=== PATIENT | male | born 1975 | race Hispanic/Latino ===

== ENCOUNTER 2018-02-15 07:32 | Emergency (ER) | payer BC ==
[2018-02-15] MEDS ORDERED: MIDAZOLAM HCL 2 MG/2 ML INJ ONE ×2 (08:19→08:28)
[2018-02-15] MEDS ORDERED: NA CHLORIDE 0.9% 1,000 ML ONE (08:19)
[2018-02-15] MEDS ORDERED: FENTANYL CITR 100 MCG/2 ML ONE (08:19)
[2018-02-15 08:20] LABS: Absolute Lymphocytes (CBC) 1.2 K/uL (0.7-4.9); Absolute Monocytes 0.4 K/uL (0.1-1.3); Absolute Neutrophil 3.4 K/uL (1.8-8.0); Basophils % 0.7 % (0-1.3); Eosinophils % 0.8 % (0-4.4); Hematocrit 42.6 % (39.6-49.0); Lymphocytes % 23.9 % (15.3-44.8); MPV 8.4 fL (7.6-11.3); Monocytes % 8.3 % (3.3-12.3); RBC Red Blood Cell Count 4.82 M/uL (4.33-5.43)
[2018-02-15 08:21] LABS: Protime INR 1.03
[2018-02-15] MEDS ORDERED: ETOMIDATE 20 MG/10 ML VIAL IV ONE (08:33)
[2018-02-15 08:45] LABS: ALT/SGPT 35 U/L (12-78); AST/SGOT 25 U/L (15-37); Albumin 3.7 g/dL (3.4-5.0); Alkaline Phosphatase 107 U/L (45-117); BUN Blood Urea Nitrogen 9 mg/dL (7-18); Bicarbonate 26 mmol/L (21-32); Bilirubin Direct 0.1 mg/dL (0-0.2); Bilirubin Total 0.6 mg/dL (0.2-1.0); Glucose Level 124 mg/dL (74-106); Magnesium 1.9 mg/dL (1.8-2.4); NT PRO-BNP 106 pg/mL (<125); Potassium 4.1 mmol/L (3.5-5.1); Protein, Total 7.4 g/dL (6.4-8.2); Sodium Level 141 mmol/L (136-145); Troponin (Emerg Dept Use Only) < 0.02 ng/mL (0.0-0.045)
--- NOTE | 2018-02-15 09:57 | RAD REPORT ---
EXAM DESCRIPTION: RAD - Chest Single View - 02/15/2018 9:42 am CLINICAL HISTORY: Chest pain, tachycardia, palpitations COMPARISON: None. TECHNIQUE: AP portable chest image was obtained 0916 hours . FINDINGS: Lungs are clear. Heart and vasculature are normal. No measurable pleural effusion and no p neumothorax. No acute bony abnormality seen. No acute aortic finding. Resuscitation paddles overlie t he left-side of the chest. IMPRESSION: No acute cardiopulmonary process.
--- NOTE | 2018-02-15 10:19 | EDPHYS ---
Physician Documentation [facility] Name: Inderjit Hassan Jr Age: 42 yrs Sex: Male : 1975 Arrival Date: 02/15/2018 Time: 07:36 Bed 4 Private MD: ED Physician Angus Bradshaw HPI: 02/15 08:36 This 42 yrs old Male presents to ER via Ambulatory with complaints of jr8 Palpitations, High Blood Pressure. 08:36 The patient presents with a history of irregular heart beat, heart racing. Context: The jr8 symptoms occur at rest. Onset: The symptoms/episode began/occurred acutely, this morning. Duration: The patient or guardian reports a single episode, that is still ongoing. Modifying factors: The symptoms are aggravated by nothing. The symptoms are alleviated by nothing. Associated signs and symptoms: The patient has no apparent associated signs or symptoms. Severity of symptoms: At their worst the symptoms were moderate in the emergency department the symptoms are unchanged. The patient has experienced a previous episode, approximately 11 years ago. The patient has been recently seen by a physician:. Patient with history of atrial fib about 11 years ago. Had cardioversion at that time. Had been fine since then. A few weeks ago felt anxious and that he started to have palpitation feeling again. Had stress test, echo, and ekg by his service inspector with no acute findings. This morning it started again and was brought to hospital by co-worker . Historical: - Allergies: 07:47 No Known Allergies; hj - Home Meds: 07:47 lisinopril 20 mg Oral tab 1 tab once daily [Active]; pravastatin oral oral [Active]; - PMHx: 07:47 Hyperlipidemia; Hypertension; - PSHx: 07:47 None; - Immunization history:: Adult Immunizations not up to date. - Social history:: Smoking status: Patient uses tobacco products, Patient/guardian denies using alcohol. - Ebola Screening: : Patient negative for fever greater than or equal to 101.5 degrees Fahrenheit, and additional compatible Ebola Virus Disease symptoms Patient denies exposure to infectious person Patient denies travel to an Ebola-affected area in the 21 days before illness onset. ROS: 08:36 Eyes: Negative for injury, pain, redness, and discharge, ENT: Negative for injury, jr8 pain, and discharge, Neck: Negative for injury, pain, and swelling, Respiratory: Negative for shortness of breath, cough, wheezing, and pleuritic chest pain, Abdomen/GI: Negative for abdominal pain, nausea, vomiting, diarrhea, and constipation, Back: Negative for injury and pain, MS/Extremity: Negative for injury and deformity, Skin: Negative for injury, rash, and discoloration, Neuro: Negative for headache, weakness, numbness, tingling, and seizure. 08:36 Cardiovascular: Positive for palpitations, Negative for chest pain, edema, orthopnea. Exam: 08:36 Eyes: Pupils equal round and reactive to light, extra-ocular motions intact. Lids and jr8 lashes normal. Conjunctiva and sclera are non-icteric and not injected. Cornea within normal limits. Periorbital areas with no swelling, redness, or edema. ENT: Nares patent. No nasal discharge, no septal abnormalities noted. Tympanic membranes are normal and external auditory canals are clear. Oropharynx with no redness, swelling, or masses, exudates, or evidence of obstruction, uvula midline. Mucous membranes moist. Neck: Trachea midline, no thyromegaly or masses palpated, and no cervical lymphadenopathy. Supple, full range of motion without nuchal rigidity, or vertebral point tenderness. No Meningismus. Respiratory: Lungs have equal breath sounds bilaterally, clear to auscultation and percussion. No rales, rhonchi or wheezes noted. No increased work of breathing, no retractions or nasal flaring. Abdomen/GI: Soft, non-tender, with normal bowel sounds. No distension or tympany. No guarding or rebound. No evidence of tenderness throughout. Back: No spinal tenderness. No costovertebral tenderness. Full range of motion. Skin: Warm, dry with normal turgor. Normal color with no rashes, no lesions, and no evidence of cellulitis. MS/ Extremity: Pulses equal, no cyanosis. Neurovascular intact. Full, normal range of motion. Neuro: Awake and alert, GCS 15, oriented to person, place, time, and situation. Cranial nerves II-XII grossly intact. Motor strength 5/5 in all extremities. Sensory grossly intact. Cerebellar exam normal. Normal gait. 08:36 Cardiovascular: Rate: tachycardic, Rhythm: irregularly irregular, Pulses: Pulses are 1+ in right radial artery and left radial artery. Heart sounds: normal, normal S1and S2, no S3 or S4, no murmur, no rub, no gallop, Edema: is not appreciated, JVD: is not appreciated. Vital Signs: 07:45 BP 146 / 84; Pulse 130; Resp 18; Temp 98.1(O); Pulse Ox 99% on R/A; Weight 118.84 kg; hj Height 6 ft. 1 in. (185.42 cm); Pain 0/10; 08:00 BP 104 / 81; Pulse 144; Resp 18; Pulse Ox 98% on 2 lpm NC; ph 08:15 BP 150 / 107; Pulse 157; Resp 16; Pulse Ox 98% on 4 lpm NC; ph 08:33 BP 160 / 93; Pulse 96; Resp 18; Pulse Ox 98% on 4 lpm NC; ph 09:00 BP 127 / 87; Pulse 77; Resp 18; Pulse Ox 99% on 4 lpm NC; ph 09:20 BP 134 / 85; Pulse 79; Resp 16; Pulse Ox 99% on 4 lpm NC; ph 09:48 BP 127 / 80; Pulse 72; Resp 18; Pulse Ox 100% on 4 lpm NC; ph 10:15 BP 123 / 83; Pulse 74; Resp 18; Temp 97.8; Pulse Ox 99% on R/A; ph 07:45 Body Mass Index 34.57 (118.84 kg, 185.42 cm) Procedures: 08:33 Cardioversion: (synchronized) for treatment of A fib, with 150 joules X 1. Post jr8 procedure rhythm is unchanged, the patient tolerated the procedure well. Cardioversion: (synchronized) for treatment of A fib, with 200 joules X 1. Post procedure rhythm is sinus rhythm, the patient tolerated the procedure well. Moderate sedation: Pre-procedure assessment: the patient has been NPO 12 hour(s) prior to arrival, ASA physical classification: II - mild/mod systemic disease that does not interfere with daily routines, Airway assessment: able to hyperextend neck, able to maintain airway, can open mouth without difficulty, Mallampati classification of tongue size: II - faucial pillars and soft palate can be visualized, but uvula is masked by the base of the tongue, Monitoring during procedure: nuclear monitoring technician, continuous pulse oximetry, nurse at bedside at all times, Medications employed: Etomidate, 10 mg(s), Fentanyl, 75 mcg(s), Versed, 4 mg(s), Post-procedure assessment: the patient is deeply sedated, Alvarez sedation score: 5 - sluggish response to a light glabellar tap, Respiratory status: even and unlabored, a reversal agent was not used. MDM: 07:42 Patient medically screened. jr8 10:13 Data reviewed: vital signs, nurses notes, lab test result(s), EKG, radiologic studies, jr8 plain films, and as a result, I will discharge patient. Data interpreted: Pulse oximetry: on room air is 100 %. Interpretation: normal. Counseling: I had a detailed discussion with the patient and/or guardian regarding: the historical points, exam findings, and any diagnostic results supporting the discharge/admit diagnosis, lab results, radiology results, the need for outpatient follow up, a service inspector, to return to the emergency department if symptoms worsen or persist or if there are any questions or concerns that arise at home. ED course: Patient since cardioversion has been back to baseline. No CP, shortness of breath or any other symptom. Labs, ECG post cardioversion, and imaging all unremarkable. Will refer to local service inspector since his is in [place]. Will come back here if it starts again. Will put him on low dose of metoprolol since this has been more frequently occurring. S/S given to him if BP becomes too low and knows to check BP daily. Knows how to adjust his medicine as well which will be written down for him as well . 02/15 08:01 Order name: Basic Metabolic Panel 02/15 08:01 Order name: CBC with Diff 02/15 08:01 Order name: LFT's; Complete Time: 09:02/15 08:01 Order name: Magnesium; Complete Time: :02/15 08:01 Order name: NT PRO-BNP; Complete Time: :02/15 08:01 Order name: PT-INR; Complete Time: :02/15 08:01 Order name: Troponin (emerg Dept Use Only); Complete Time: 09:02/15 08:01 Order name: XRAY Chest (1 view); Complete Time: 10:02 02/15 08:01 Order name: TSH; Complete Time: 09:06 8 02/15 08:01 Order name: T4 Free; Complete Time: 09:06 02/15 08:02 Order name: Basic Metabolic Panel; Complete Time: 09:06 EDMS 02/15 08:02 Order name: CBC with Automated Diff; Complete Time: 09:06 EDMS 02/15 07:49 Order name: EKG; Complete Time: 07:50 hj 02/15 08:01 Order name: Cardiac monitoring; Complete Time: 08:45 02/15 08:01 Order name: EKG - Nurse/Tech; Complete Time: 08:45 02/15 08:01 Order name: IV Saline Lock; Complete Time: 08:46 02/15 08:01 Order name: Labs collected and sent; Complete Time: 08:46 02/15 08:01 Order name: O2 Per Protocol; Complete Time: 08:46 02/15 08:01 Order name: O2 Sat Monitoring; Complete Time: 08:46 02/15 10:17 Order name: EKG Electrocardiogram EDMS Administered Medications: 08:15 Drug: fentaNYL (PF) 75 mcg Route: IVP; Site: right antecubital; ph 08:30 Follow up: Response: No adverse reaction ph 08:15 Drug: NS 0.9% 500 ml Route: IV; Rate: bolus; Site: right antecubital; ph 08:45 Follow up: Response: No adverse reaction; IV Status: Completed infusion; IV Intake: ph 500ml 08:17 Drug: Versed 2 mg Route: IVP; Site: right antecubital; ph 10:36 Follow up: Response: No adverse reaction ph 08:19 Drug: Versed 2 mg Route: IVP; Site: right antecubital; ph 10:35 Follow up: Response: No adverse reaction ph 08:26 Drug: Etomidate 10 mg Route: IVP; Site: right antecubital; ph 10:36 Follow up: Response: No adverse reaction ph 08:45 Drug: NS 0.9% 1000 ml Route: IV; Rate: 125 ml/hr; Site: right antecubital; ph 10:35 Follow up: Response: No adverse reaction; IV Status: Completed infusion ph 10:35 Drug: Metoprolol 25 mg Route: PO; ph 10:37 Follow up: Response: Medication administered at discharge. ph Disposition: 11:49 Co-signature as Attending Physician, Angus Bradshaw MD. rn Disposition: 02/15/18 10:19 Discharged to Home. Impression: Atrial fibrillation and flutter - with RVR. - Condition is Stable. - Discharge Instructions: Atrial Fibrillation. - Prescriptions for Metoprolol Tartrate 25 mg Oral Tablet - take 1 tablet by ORAL route once daily with a meal; 30 tablet. - Work release form, Medication Reconciliation Form, Thank You Letter, Antibiotic Education, Prescription Opioid Use form. - Follow up: Dl Sanders MD; When: 2 - 3 days; Reason: Recheck today's complaints, Continuance of care, Re-evaluation by your physician. - Problem is new. - Symptoms are resolved. - Notes: Continue Lisinopril 20mg once daily along with Metoprolol 25 mg once daily If blood pressure is low cut Lisinopril down to 10 mg once a day and continue Metoprolol 25 mg Critical care time excluding procedures: 10:23 Critical care time: Bedside Care: 20 minutes, Family Intervention: 10 minutes. Total jr8 time: 30 minutes Signatures: Dispatcher [employer] [facility] Angus Bradshaw MD MD rn Nicolasa, JASMYNE Foss PA jr8 Naomy Varela RN RN ph Kevin Park RN RN Corrections: (The following items were deleted from the chart) 10:13 10:04 Hip Right 2 View+RAD.RAD.BRZ ordered. [facility] 10:39 10:19 02/15/2018 10:19 Discharged to Home. Impression: Atrial fibrillation and flutter ph - with RVR. Condition is Stable. Forms are Medication Reconciliation Form, Thank You Letter, Antibiotic Education, Prescription Opioid Use. Follow up: Dl Sanders; When: 2 - 3 days; Reason: Recheck today's complaints, Continuance of care, Re-evaluation by your physician. Problem is new. Symptoms are resolved. jr8
--- NOTE | 2018-02-15 10:19 | ER ---
Nurse's Notes [facility] Name: Inderjit Hassan Jr Age: 42 yrs Sex: Male : 1975 Arrival Date: 02/15/2018 Time: 07:36 Bed 4 Private MD: Diagnosis: Atrial fibrillation and flutter-with RVR Presentation: 02/15 07:44 Presenting complaint: Patient states: i woke up today with my heart raising and i have hj palpitations issues and my BP is high; recently visited a cardiology; denies chest pain;. Transition of care: patient was not received from another setting of care. Onset of symptoms was February 15, 2018. Risk Assessment: Do you want to hurt yourself or someone else? Patient reports no desire to harm self or others. Initial Sepsis Screen: Does the patient meet any 2 criteria? No. Patient's initial sepsis screen is negative. Does the patient have a suspected source of infection? No. Patient's initial sepsis screen is negative. Care prior to arrival: None. 07:44 Method Of Arrival: Ambulatory 07:44 Acuity: ADRIAN 3 Triage Assessment: 07:47 General: Appears in no apparent distress. uncomfortable, Behavior is calm, cooperative, hj appropriate for age. Pain: Denies pain. Historical: - Allergies: 07:47 No Known Allergies; - Home Meds: 07:47 lisinopril 20 mg Oral tab 1 tab once daily [Active]; pravastatin oral oral [Active]; - PMHx: 07:47 Hyperlipidemia; Hypertension; - PSHx: 07:47 None; - Immunization history:: Adult Immunizations not up to date. - Social history:: Smoking status: Patient uses tobacco products, Patient/guardian denies using alcohol. - Ebola Screening: : Patient negative for fever greater than or equal to 101.5 degrees Fahrenheit, and additional compatible Ebola Virus Disease symptoms Patient denies exposure to infectious person Patient denies travel to an Ebola-affected area in the 21 days before illness onset. Screenin:47 Abuse screen: Denies threats or abuse. Denies injuries from another. Nutritional hj screening: No deficits noted. Tuberculosis screening: No symptoms or risk factors identified. Fall Risk None identified. Assessment: 08:00 Reassessment: EKG done, showed Afib with RVR; new onset, provided ordered to transfer hj pt to trauma bay; report given to BILL RN;. 08:10 General: Appears in no apparent distress. comfortable, well groomed, Behavior is calm, ph cooperative, appropriate for age. Pain: Denies pain. Cardiovascular: Reports fatigue, lightheadedness, palpitations, shortness of breath, Denies chest pain, diaphoresis, nausea, vomiting, Capillary refill < 3 seconds Patient's skin is warm and dry. Rhythm is atrial fibrillation with rapid ventricular response. Respiratory: Airway is patent Respiratory effort is even, unlabored, Respiratory pattern is regular, symmetrical. GI: No signs and/or symptoms were reported involving the gastrointestinal system. Derm: Skin is intact, is healthy with good turgor, Skin is pink, warm \T\ dry. Musculoskeletal: Circulation, motion, and sensation intact. Range of motion: intact in all extremities. 08:15 Reassessment: Patient appears in no apparent distress at this time. JASMYNE Karimi at bedside, preparing pt for cardioversion, consent form signed by pt. 08:25 Reassessment: Patient appears in no apparent distress at this time. Patient and/or ph family updated on plan of care and expected duration. Pain level reassessed. Cardioversion x 2, cardiac rhythm is now 90 bpm SR, pt awake but drowsy, denies pain or SOB at this time, VSS, awaiting lab results. 09:52 Reassessment: Patient appears in no apparent distress at this time. Patient and/or ph family updated on plan of care and expected duration. Pain level reassessed. Patient is alert, oriented x 3, equal unlabored respirations, skin warm/dry/pink. Pt resting quietly, denies pain, VSS, cardiac rhythm remains NSR at 75 bpm. 10:09 Reassessment: Patient appears in no apparent distress at this time. Patient and/or ch family updated on plan of care and expected duration. Pain level reassessed. Patient is alert, oriented x 3, equal unlabored respirations, skin warm/dry/pink. PIPO AT BEDSIDE DISCUSSING RESULTS, DX, MEDICATIONS Patient denies pain at this time. Patient states feeling better. Patient states symptoms have improved. Vital Signs: 07:45 BP 146 / 84; Pulse 130; Resp 18; Temp 98.1(O); Pulse Ox 99% on R/A; Weight 118.84 kg; hj Height 6 ft. 1 in. (185.42 cm); Pain 0/10; 08:00 BP 104 / 81; Pulse 144; Resp 18; Pulse Ox 98% on 2 lpm NC; ph 08:15 BP 150 / 107; Pulse 157; Resp 16; Pulse Ox 98% on 4 lpm NC; ph 08:33 BP 160 / 93; Pulse 96; Resp 18; Pulse Ox 98% on 4 lpm NC; ph 09:00 BP 127 / 87; Pulse 77; Resp 18; Pulse Ox 99% on 4 lpm NC; ph 09:20 BP 134 / 85; Pulse 79; Resp 16; Pulse Ox 99% on 4 lpm NC; ph 09:48 BP 127 / 80; Pulse 72; Resp 18; Pulse Ox 100% on 4 lpm NC; ph 10:15 BP 123 / 83; Pulse 74; Resp 18; Temp 97.8; Pulse Ox 99% on R/A; ph 07:45 Body Mass Index 34.57 (118.84 kg, 185.42 cm) Vitals: 08:00 Cardiac Rhythm Assessment Atrial fibrillation W/rapid ventricular response. ph 09:48 Cardiac Rhythm Assessment Sinus rhythm. ph 10:15 Cardiac Rhythm Assessment Sinus rhythm. ph ED Course: 07:36 Patient arrived in ED. rg4 07:42 Pipo Baldwin PA is PHCP. jr8 07:42 Angus Bradshaw MD is Attending Physician. jr8 07:44 Kevin Park RN is Primary Nurse. hj 07:45 Triage completed. hj 07:47 Arm band placed on right wrist. hj 07:48 Patient has correct armband on for positive identification. Placed in gown. Bed in low hj position. Call light in reach. Side rails up X 1. 08:09 Report given to ZULMA KHAN. hj 08:10 Consent signed by pt for cardioversion. ph 08:10 Inserted saline lock: 18 gauge in right antecubital area, using aseptic technique. ph 08:12 Inserted saline lock: 20 gauge in left antecubital area, using aseptic technique. ph 08:20 Oxygen administration via nasal cannula \T\ 4L/min. ph 08:21 Assist provider with cardioversion (synchronized) with pads, for treatment of A fib ph with 150 joules X 1. Set up for procedure. Performed by Pipo MEDLEY Monitored with court monitor, pulse ox, Post procedure rhythm is unchanged. Patient tolerated well. 08:25 Assist provider with cardioversion (synchronized) with pads, for treatment of A fib ph with 200 joules X 1. Set up for procedure. Performed by Angus Bradshaw MD Monitored with court monitor, pulse ox, Post procedure rhythm is sinus rhythm. Patient tolerated well. 08:31 EKG done, by special procedures technologist. reviewed by Pipo MEDLEY Repeat EKG; post cardioversion. at1 08:33 Naomy Varela RN is Primary Nurse. ph 09:41 X-ray completed. Portable x-ray completed in exam room. Patient tolerated procedure jb2 well. 09:42 XRAY Chest (1 view) In Process Unspecified. EDMS 10:18 Dl Sanders MD is Referral Physician. jr8 10:38 IV discontinued, intact, bleeding controlled, No redness/swelling at site. Pressure ph dressing applied. Administered Medications: 08:15 Drug: fentaNYL (PF) 75 mcg Route: IVP; Site: right antecubital; ph 08:30 Follow up: Response: No adverse reaction ph 08:15 Drug: NS 0.9% 500 ml Route: IV; Rate: bolus; Site: right antecubital; ph 08:45 Follow up: Response: No adverse reaction; IV Status: Completed infusion; IV Intake: ph 500ml 08:17 Drug: Versed 2 mg Route: IVP; Site: right antecubital; ph 10:36 Follow up: Response: No adverse reaction ph 08:19 Drug: Versed 2 mg Route: IVP; Site: right antecubital; ph 10:35 Follow up: Response: No adverse reaction ph 08:26 Drug: Etomidate 10 mg Route: IVP; Site: right antecubital; ph 10:36 Follow up: Response: No adverse reaction ph 08:45 Drug: NS 0.9% 1000 ml Route: IV; Rate: 125 ml/hr; Site: right antecubital; ph 10:35 Follow up: Response: No adverse reaction; IV Status: Completed infusion ph 10:35 Drug: Metoprolol 25 mg Route: PO; ph 10:37 Follow up: Response: Medication administered at discharge. ph Intake: 08:45 IV: 500ml; Total: 500ml. ph Outcome: 10:19 Discharge ordered by . jr8 10:38 Discharged to home ambulatory. ph 10:38 Condition: improved 10:38 Discharge instructions given to patient, Instructed on discharge instructions, follow up and referral plans. medication usage, Demonstrated understanding of instructions, follow-up care, medications, Prescriptions given X 1. 10:39 Patient left the ED. ph Signatures: Dispatcher [employer] EDMS Lucia Galan, RN RN Tuan Higgins jb2 Pipo Baldwin PA PA jr8 Jane Amaya, board operator EKG Tat1 Naomy Varela RN RN Kevin Park RN RN Silvina Burnham rg4
[2018-02-15] MEDS ORDERED: METOPROLOL TAR 25 MG TAB ONE (10:41)
--- NOTE | 2018-02-15 13:26 | EKG ---
Test Date: 2018-02-15 Test Time: 08:26:06 Rehabilitation Construction Specialist: MELQUIADES MEASUREMENT RESULTS: Intervals: Rate: 89 CO: 156 QRSD: 106 QT: 364 QTc: 442 Korbel: P: 26 CO: 156 QRS: 58 T: 33 INTERPRETIVE STATEMENTS: Normal sinus rhythm Normal ECG Compared to ECG 02/15/2018 07:53:23 Atrial fibrillation no longer present Electronically Signed On 02-15-18 13:24:51 CAR DISTRIBUTOR by Keagan Andres
--- NOTE | 2018-02-15 13:26 | EKG ---
Test Date: 2018-02-15 Test Time: 07:53:23 Nut Grinder: MELQUIADES MEASUREMENT RESULTS: Intervals: Rate: 144 DC: QRSD: 90 QT: 266 QTc: 411 Victor: P: DC: QRS: 56 T: 34 INTERPRETIVE STATEMENTS: Atrial fibrillation with rapid ventricular response Abnormal ECG No previous ECG available for comparison Electronically Signed On 02-15-18 13:25:38 HISTOLOGY TECH by Keagan Andres
== END 2018-02-15 10:39 | disposition home or self-care (01) ==
LOC: ER 07:32
PROC: 5A2204Z Restoration of Cardiac Rhythm, Single (ICD-10-PCS; principal; 2018-02-15)
DX: I48.2 Chronic atrial fibrillation (principal); I48.92 Unspecified atrial flutter; I10 Essential (primary) hypertension; E78.5 Hyperlipidemia, unspecified; Z72.0 Tobacco use
CPT/HCPCS: 36415; 71045; 80048; 80076; 83735; 83880; 84439; 84443; 84484; 85025; 85610; 92960; 93005; 96361; 96374; 96375; 99291; 99292; J2250; J3010; J7030